=== PATIENT | female | born 1945 | race African-American/Black ===

== ENCOUNTER 2024-09-16 13:46 | Inpatient (IN) | payer OTHER ==
[~2024-09-16] VITALS: Ht 152.4 cm; Wt 52.6 kg
[2024-09-16 14:00] VITALS: O2SAT 100
[2024-09-16 15:29] LABS: HEMATOCRIT. 35.9 % (36.0-48.0); HEMOGLOBIN. 10.8 g/dL (12.0-16.0); MEAN PLATELET VOLUME 8.6 fl (7.4-10.4); PLATELET 177 x1000/uL (130-400); RED BLOOD CELL COUNT 3.83 mill/uL (4.2-5.4); RED CELL DISTRIBUTION WIDTH 20.4 % (11.6-14.6)
[2024-09-16 15:47] LABS: CREATININE 2.6 mg/dL (0.6-1.0); UREA NITROGEN BLOOD 10 mg/dL (9-23)
[2024-09-16 15:50] LABS: TROPONIN I HIGH SENSITIVITY 3064 ng/L (3.0-34)
[2024-09-16] MEDS: ASPIRIN 325MG EC TABLET PO ONE (16:00)
[2024-09-16] MEDS: CEFTRIAXONE 1GM/50ML 50 ML IV NR (16:14)
[2024-09-16 16:49] LABS: LYMPHOCYTES % MANUAL 4.0 % (20.0-60.0); MONOCYTES % MANUAL 10.0 % (2.0-8.0); NEUTROPHILS % MANUAL 86.0 % (45.0-75.0); PLATELET ESTIMATE NORMAL
[2024-09-16] MEDS: AZITHROMYCIN 500MG/250ML 250 ML IV NR (16:56)
[2024-09-16] MEDS ORDERED: CLONIDINE 0.1MG TABLET PO PRN (17:45)
[2024-09-16] MEDS ORDERED: MAGNESIUM/ALUMINUM HYDROXIDE/SIMETHICONE 30ML UDC PO PRN (17:45)
[2024-09-16] MEDS ORDERED: IPRATROPIUM/ALBUTEROL 0.5-3(2.5)MG/3ML NEB HHN PRN (17:45)
[2024-09-16] MEDS ORDERED: DOCUSATE SODIUM 100MG CAPSULE PO PRN (17:45)
[2024-09-16] MEDS ORDERED: ACETAMINOPHEN 325MG TABLET PO PRN ×2 (17:45)
[2024-09-16] MEDS ORDERED: ONDANSETRON HCL 4MG/2ML INJ IV PRN (17:45)
[2024-09-16] MEDS ORDERED: GUAIFENESIN 200MG/10ML SUGAR FREE UDC PO PRN (17:45)
[2024-09-16] MEDS ORDERED: CEFTRIAXONE SODIUM 1G VIAL IM ONE (18:15)
[2024-09-16 18:33] LABS: FOLIC ACID (FOLATE) SERUM 11.74 ng/mL (>5.38)
[2024-09-16 18:34] LABS: VITAMIN B12 SERUM 947 pg/mL (211-911)
[2024-09-16] MEDS: KCL 20MEQ/100ML PREMIX 100 ML IV SCH (19:00)
[2024-09-16] MEDS ORDERED: DEXTROSE 50% WATER 50ML SYRINGE IV PRN (19:45)
[2024-09-16 20:00] VITALS: BP 123/59; PULSE 79; RESP 16; TEMP 36.7; O2SAT 97
[2024-09-16] MEDS ORDERED: MIDODRINE HCL 5MG TABLET PO PRN (20:00)
[2024-09-16] MEDS: BLOOD SUGAR DIAGNOSTIC STRIP TEST SCH (21:00)
[2024-09-16] MEDS: ATORVASTATIN CALCIUM 40MG TABLET PO SCH (21:00)
[2024-09-16 21:02] LABS: PHOSPHORUS 2.9 mg/dL (2.5-4.9)
[2024-09-16 21:27] VITALS: BP 119/51; PULSE 71; RESP 14; TEMP 36.5292
[2024-09-16] MEDS ORDERED: SODIUM CHLORIDE 0.9% 500 ML IV ONE (22:00)
[2024-09-16 22:47] LABS: TROPONIN I HIGH SENSITIVITY 2491 ng/L (3.0-34)
[2024-09-16] MEDS: DEXT 5%/0.45% NACL 1000ML 1,000 ML IV SCH (23:49)
[2024-09-17] MEDS: CEFTRIAXONE 1GM/50ML 50 ML IV SCH (00:05)
[2024-09-17 03:30] VITALS: BP 119/67; PULSE 78; RESP 18; TEMP 36.1; O2SAT 96
[2024-09-17 06:24] LABS: TRIGLYCERIDE 96 mg/dL (0-150)
[2024-09-17 06:25] LABS: HEMATOCRIT. 34.9 % (36.0-48.0); HEMOGLOBIN. 10.4 g/dL (12.0-16.0); MEAN PLATELET VOLUME 8.9 fl (7.4-10.4); PLATELET 163 x1000/uL (130-400); RED BLOOD CELL COUNT 3.70 mill/uL (4.2-5.4); RED CELL DISTRIBUTION WIDTH 20.9 % (11.6-14.6); UREA NITROGEN BLOOD 12 mg/dL (9-23)
[2024-09-17 06:28] LABS: LDL CHOLESTEROL 28 mg/dL (5-100); T4 FREE 0.81 ng/dL (0.89-1.76)
[2024-09-17 06:29] LABS: ASPARTATE AMINOTRANSFERASE 231 IU/L (<34); BILIRUBIN DIRECT 0.3 mg/dL (<=3.0); BILIRUBIN TOTAL 0.6 mg/dL (0.1-1.0); PROTEIN TOTAL 5.9 g/dL (6.0-8.3)
[2024-09-17 06:55] LABS: TROPONIN I HIGH SENSITIVITY 2474 ng/L (3.0-34)
[2024-09-17 07:04] LABS: CREATININE 3.5 mg/dL (0.6-1.0)
[2024-09-17] MEDS: SODIUM CHLORIDE 0.9% 500 ML IV ONE (07:19)
[2024-09-17] MEDS ORDERED: CEFEPIME 1,000 MG in DEXT 5% WATER 100 ML IV SCH (09:00)
[2024-09-17] MEDS: PANTOPRAZOLE SODIUM 40 MG/VIAL IV SCH (09:59)
[2024-09-17] MEDS: ASPIRIN 81MG TABLET PO SCH (09:59)
[2024-09-17 10:16] LABS: HEPATITIS A AB IGM NEGATIVE (Negative)
[2024-09-17 10:17] LABS: HEPATITIS B CORE AB IGM NEGATIVE (Negative); HEPATITIS C AB NON REACTIVE (Neg) (Negative)
[2024-09-17 12:00] VITALS: BP 119/47; PULSE 78; RESP 16; TEMP 36.1; O2SAT 96
[2024-09-17] MEDS ORDERED: ASPI-1160 PO (12:14)
[2024-09-17] MEDS ORDERED: AMOX1TAB16 MT (12:14)
[2024-09-17] MEDS ORDERED: LIP40 PO (12:14)
[2024-09-17 13:18] VITALS: BP 114/41; PULSE 71; RESP 16; TEMP 36.2; O2SAT 96
[2024-09-17 13:34] VITALS: BP 114/41; PULSE 71; RESP 16; TEMP 97.1
[2024-09-17] MEDS: ENOXAPARIN 60MG/0.6ML SYR SUBCUT SCH (14:07)
[2024-09-17] MEDS ORDERED: AZITHROMYCIN 500MG/250ML 250 ML IV SCH (16:00)
[2024-09-17 17:05] LABS: BAND% 9.0 % (1.0-6.0); LYMPHOCYTES % MANUAL 6.0 % (20.0-60.0); MONOCYTES % MANUAL 7.0 % (2.0-8.0); MYELOCYTES % 1.0 % (0-0); NEUTROPHILS % MANUAL 77.0 % (45.0-75.0); PLATELET ESTIMATE NORMAL; PLATELET SATELLITISM FEW
== END 2024-09-17 14:25 | disposition short-term general hospital (02) | DRG 871 ==
LOC: ER 13:46 → 7WST 16:58 → EDBEDREQ 17:15 → EDBEDREQTM 17:15
PROVIDERS: ADMIT Internal Medicine; ATTEND Internal Medicine
DX: A41.9 Sepsis, unspecified organism (principal); G92.8 Other toxic encephalopathy; J69.0 Pneumonitis due to inhalation of food and vomit; N18.6 End stage renal disease; I21.A1 Myocardial infarction type 2; J18.9 Pneumonia, unspecified organism; I12.0 Hypertensive chronic kidney disease with stage 5 chronic kidney disease or end stage renal disease; E11.52 Type 2 diabetes mellitus with diabetic peripheral angiopathy with gangrene; J44.0 Chronic obstructive pulmonary disease with (acute) lower respiratory infection; D64.9 Anemia, unspecified; E11.22 Type 2 diabetes mellitus with diabetic chronic kidney disease; E87.6 Hypokalemia; I48.91 Unspecified atrial fibrillation; R65.20 Severe sepsis without septic shock; Z99.2 Dependence on renal dialysis; Z79.01 Long term (current) use of anticoagulants; Z87.891 Personal history of nicotine dependence; Z89.511 Acquired absence of right leg below knee; Z88.8 Allergy status to other drugs, medicaments and biological substances
CPT/HCPCS: 36415; 71045; 80048; 80061; 80076; 82550; 82607; 82728; 82746; 82962; 83036; 83540; 83550; 83605; 83735; 83880; 84100; 84145; 84439; 84443; 84484; 85025; 86705; 86709; 87340; 93005; 99291; A4606; J0456; J0696; J1650; J2470